=== PATIENT | female | born 2000 | race Caucasian/White ===

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

== ENCOUNTER 2020-04-17 10:59 | Inpatient (IN) ==
[2020-04-17] MEDS: RINGER'S SOLUTION,LACTATED 1,000 ML IV PRN ×2 (11:25→15:20)
[2020-04-17] MEDS ORDERED: ONDANSETRON HCL/PF 2 MG/ML VIAL IV PRN (11:28)
[2020-04-17] MEDS ORDERED: SIMETHICONE 80 MG TAB.CHEW PO PRN (11:28)
[2020-04-17] MEDS ORDERED: diphenhydrAMINE HCL 25 MG CAPSULE PO PRN (11:28)
[2020-04-17] MEDS ORDERED: HYDROcodone/ACETAMINOPHEN 1 EACH TABLET PO PRN (11:28)
[2020-04-17] MEDS ORDERED: KETOROLAC TROMETHAMINE 30 MG/ML VIAL IV PRN (11:28)
[2020-04-17] MEDS ORDERED: SENNOSIDES 8.6 MG TABLET PO PRN (11:28)
[2020-04-17] MEDS ORDERED: BISACODYL 10 MG SUPP.RECT RC PRN (11:28)
[2020-04-17] MEDS ORDERED: Oxytocin/Ringers Lactate 20 UNITS/1,000 ML BAG IV ONE (11:33)
[2020-04-17 11:58] LABS: Hematocrit 30.3 % (37.0-47.0); Hemoglobin 10.2 gm/dL (12.5-16.0); Mean Cell Volume 89.6 fl (78-100); Mean Corpuscular Hemoglobin 30.2 pg (27-31); Mean Corpuscular Hgb Conc 33.7 g/dl (32-36); Mean Platelet Volume 9.8 fl (8-12.5); Neutrophil # 6.1 K/mm3 (1.3-6.0); Neutrophil % 69.3 % (42-75.0); Platelet Count 228 K/mm3 (150-450); Red Blood Count 3.38 M/mm3 (4.2-5.4); Red Cell Distribution Width 13.2 % (11.5-14.0); White Blood Count 8.9 K/mm3 (4.0-10.5)
[2020-04-17 12:12] LABS: Random Urine Total Protein 15.4 mg/dL (0-12)
[2020-04-17 12:15] LABS: Albumin * 2.7 gm/dl (3.4-5.0); Anion Gap 14.5 mmol/L (6.8-13.8); Bilirubin, Total 0.2 mg/dL (0.0-1.1); Ca. Corrected For Albumin 9.6 mg/dL (8.4-10.2); Calcium * 8.9 mg/dL (7.9-10.9); Carbon Dioxide 21.2 mmol/L (24-32.6); Potassium 3.7 mmol/L (3.4-4.6); Total Protein 6.6 gm/dL (6.2-8.2)
[2020-04-17] MEDS ORDERED: ceFAZolin SODIUM 1 GM VIAL ONE (12:33)
--- NOTE | 2020-04-17 13:22 | ANES ---
Anesthesia Pre Procedure Eval Vitals/Labs: Last Vital Signs Temp 37.1 C 04/17/20 12:00 Pulse 95 04/17/20 12:00 Resp 18 04/17/20 12:00 BP 128/65 04/17/20 12:00 Pulse Ox 99 04/17/20 12:00 HOME MEDICATIONS famotidine 20 mg tablet 20 mg PO DAILY #30 tab 07/13/18 [Last Taken Unknown] Pnv No.122/Iron/Folic Acid [ Multi Tablet] 1 ea PO DAILY 03/08/20 [Last Taken Unknown] aspirin 81 mg tablet,delayed release 81 mg PO DAILY 03/28/20 [Last Taken Unknown] doxylamine 10 mg-pyridoxine (vit B6) 10 mg tablet,delayed release 1 tab PO TID PRN 03/28/20 [Last Taken Unknown] metoclopramide HCl 10 mg tablet 10 mg PO QID 03/28/20 [Last Taken Unknown] Ferrous Sulfate [Iron] 325 mg PO TID 04/17/20 [Last Taken Unknown] Allergies/Adverse Reactions: Allergies Allergy/AdvReac Type Severity Reaction Status Date / Time milk AdvReac nausea Verified 04/17/20 09:29 - Planned Procedure Planned Procedure: primary Medication List Reviewed:: Yes Allergies Verified: Yes Medical History (Last Reviewed 04/17/20 @ 13:20 by Dudley Restrepo CRNA) Ankle pain, left (Acute) Onset Date: ~09/09/18 Left ankle injury (Acute) Onset Date: ~09/09/18 Acid reflux Onset Date: Unknown Body mass index (BMI) greater than 95th percentile Onset Date: ~12/07/12 Conductive hearing loss Onset Date: Unknown History of ear infections Otitis media Onset Date: ~03/29/13 Perforation of tympanic membrane Onset Date: ~04/30/13 Tinnitus Onset Date: Unknown Tympanosclerosis involving tympanic membrane only Onset Date: Unknown Surgical History (Last Reviewed 04/17/20 @ 13:20 by Dudley Restrepo CRNA) History of placement of ear tubes Onset Date: Unknown 03/25, 12/27, 02/27 History of placement of ear tubes History of tympanoplasty Onset Date: ~07/2005 History of adenoidectomy Family History (Last Reviewed 04/17/20 @ 13:20 by Dudley Restrepo CRNA) Aunt Ovarian cyst Mother Acid reflux Father Alive and well Mother PCOS (polycystic ovarian syndrome) Hypertension Anemia Grandmother Cancer cervical - maternal Grandfather Cancer Paternal - lung cancer Grandmother Hypertension Other CVA (cerebral vascular accident) Migraine No pertinent family history - Family Anesthesia History Family History:: no untoward family reactions to anesthesia, no familial bleeding tendencies, no family history of clotting disorders, no family history of premature - Airway/Neck/Teeth Within Normal Limits:: Yes Teeth Condition: intact Neck Exam: full range of motion Mallampatti Score: 2 Thyromental (T-M) distance: > 6 cm Mandibulo Hyoid distance: > 3 cm - Respiratory Respiratory Physical: lungs clear Smoking Status: Never smoker Sleep Apnea currently treated: No Sleep Apnea by current assessment: No - Cardiovascular Tolerate Activity: Fair Heart Sounds: S1 & S2, Regular - Anesthesia Assessment and Plan ASA Class: PS, II Anesthesia Type Plan: Block - Bilateral TAP block for post op pain relief, Spinal
[2020-04-17] MEDS ORDERED: BUPIVACAINE HCL/EPINEPHRINE 50 ML VIAL IJ ONE (13:40)
--- NOTE | 2020-04-17 16:00 | PN ---
Progess Note - Interim Date: 04/17/20 Time: 15:59 Narrative: 04/17/20 15:59 See H&P in clinic EMR
--- NOTE | 2020-04-17 16:14 | OR ---
Operative Report - Dictated Report Narrative: Date of delivery: 04/17/2020 Time of delivery: 151 Gender: male weight: 2640 grams APGARS: 99 Preoperative diagnosis: IUP at 36w 3d, CHTN, oligohydramnios, delivery on maternal request Postoperative diagnosis: as above and foul-smelling amniotic fluid Procedure: Primary delivery Surgeon: Dr. Nowak Anesthesia: Spinal Anesthesiologist: Dudley Restrepo CRNA Description of the procedure: The patient was taken to the operating room where spinal anesthesia was induced. She was then prepped and draped in the lithotomy position in the standard surgical fashion. A Pfannestiel skin incision was made. The incision was carried through the subc utaneous tissue. The fascia was incised in the midline. The fascial incision was extended sharply. The fascia was from the underlying rectus muscles. The rectus muscles were in the midline. The peritoneum was entered bluntly. A large Buck retractor was placed in the abdomen. The uterus was incised in a low transverse fashion. The uterine incision was extended bluntly. The membranes were ruptured and minimal fluid was noted. The head was delivered without difficulty followed by the shoulders and the rest of the infant. The cord was clamped and cut and the infant was handed off to the attending pediatric staff. Cord blood was collected. The placenta was delivered by expression, intact, and without difficulty. The uterus was closed with 0-vicryl in two layers. The second layer was an imbricating layer. The uterine incision was inspected and appeared hemostatic. The Buck retractor was removed from the abdomen. The subfascial tissues were inspected for hemostasis as were the rectus muscles. The fascia was closed with 1-0 vicryl. The subcutaneous tissue's space was closed with 2-0 vicryl. The skin was closed with 3-0 monocryl on a Manfred needle. Blue Ball lam was placed over the incision. The incision was covered with a dressing. All sponge, lap, and needle counts were correct. The patient tolerated the procedure well. She was transferred to the recovery room in stable condition. EBL: 300 mL Complications: none Specimens: cord blood, placenta History for Definition: * The number of deliveries resulting in a live the patient experienced prior to current hospitalization * The previous delivery of live twins or any live multiple gestation is considered one live event. *If primagravida or nulliparous is documented select zero for the number of previous live births. Live Events: 0
--- NOTE | 2020-04-17 16:23 | ANES ---
Post Anesthesia Discharge - Transfer of Care Transfer of Care handoff given to nurse: Yes - Discharge from PACU Discharge from PACU when meets criteria: Yes - Comfortable - Anesthesia Post Op Note Anesthesia Post Op Note: Bilateral TAP block administered.
--- NOTE | 2020-04-17 17:00 | ANES ---
Post Anesthesia Assessment - Vital Signs Vitals: Last Vital Signs Temp 36.3 C 04/17/20 16:34 Pulse 84 04/17/20 16:45 Resp 18 04/17/20 16:45 BP 153/80 H 04/17/20 16:45 Pulse Ox 100 04/17/20 16:45 Airway Patency: Normal - Mental Status Level Of Consciousness: Awake, Alert, Appropriate - Pain Level Pain Score: 0 - N/V Assessment Nausea/Vomiting Presence: None Dehydration:: No
[2020-04-17] MEDS: HYDROcodone/ACETAMINOPHEN 1 EACH TABLET PO PRN (17:58)
[2020-04-17] MEDS: DOCUSATE SODIUM 100 MG CAPSULE PO SCH (22:18)
[2020-04-18] MEDS: HYDROcodone/ACETAMINOPHEN 1 EACH TABLET PO PRN ×3 (02:19→12:33)
[2020-04-18] MEDS ORDERED: ceFAZolin SODIUM 1 GM VIAL IV PRN (06:00)
--- NOTE | 2020-04-18 06:51 | PN ---
Subjective - Date and Time Seen Date: 04/18/20 Time: 06:49 Subjective Narrative: Patient without complaints Objective Objective Narrative: See vital signs - Review of Systems Generalized/Overall Review: Reports: No Symptoms Reported Misc: All systems neg except as marked - Vitals Vitals: Last Vital Signs Temp 37.0 C 04/18/20 02:10 Pulse 102 H 04/18/20 02:10 Resp 18 04/18/20 02:10 BP 135/75 04/18/20 02:10 Pulse Ox 98 04/18/20 02:10 - Abnormal Lab Findings Abnormal Lab Findings: Abnormal Lab Results 04/17/20 04/17/20 04/17/20 Range/Units 10:30 11:46 11:46 RBC 3.38 L (4.2-5.4) M/mm3 Hgb 10.2 L (12.5-16.0) gm/dL Hct 30.3 L (37.0-47.0) % Immature Gran % (Auto) 1.20 H (0.001-0.429) % Immature Gran # (Auto) 0.11 H (0.000-0.0310) K/mm3 Neutrophils # 6.1 H (1.3-6.0) K/mm3 Carbon Dioxide 21.2 L (24-32.6) mmol/L Anion Gap 14.5 H (6.8-13.8) mmol/L ALT 14 L (19-67) U/L Albumin 2.7 L (3.4-5.0) gm/dl U Random Total Protein 15.4 H (0-12) mg/dL U [place] Prot/Creat Ratio 237 H (0-199) mg/gm - Exam Constitutional: Present: Alert, Oriented x3, Cooperative ENT Exam: Present: hearing grossly normal Neck: Present: normal inspection Breasts: Present: Exam deferred Respiratory: Present: lungs clear, normal breath sounds, no respiratory distress Cardiovascular/Chest: Present: regular rate, rhythm Abdomen: Present: soft, nontender, nondistended - dressing c/d/i /Rectal: Present: Exam deferred Extremity: Present: non-tender, no calf tenderness Skin Exam: Present: normal color, warm/dry, no cyanosis Neurologic: Present: alert, normal mood/affect, oriented x 3 Appearance: Present: appropriate appearance, appropriate insight, neat, no memory impairment Eye contact: Present: cooperative, good eye contact, normal speech Thoughts: Present: normal thought pattern Cauti Physician Documentation - Urinary Catheter Management Urethral (Briones) Urethral Indwelling: No Date of Insertion: 04/17/20 Time of Insertion: 15:01 Assessment/Plan Plan Narrative: POD 1 s/p primary delivery Doing well Discharge today
[2020-04-18] MEDS: DOCUSATE SODIUM 100 MG CAPSULE PO SCH ×2 (06:55→09:03)
[2020-04-18] MEDS: IBUPROFEN 800 MG TABLET PO PRN ×2 (06:55→12:32)
--- NOTE | 2020-04-18 06:56 | DS ---
OB Discharge Summary (1) Oligohydramnios Status: Acute Qualifiers: Fetus number: single or unspecified fetus Trimester: third trimester Qualified Code(s): O41.03X0 - Oligohydramnios, third trimester, not applicable or unspecified (2) Status post delivery Status: Acute Delivery Date: 04/17/20 Delivery Time: 15:17 :: 1 Para:: 0 Gestational weeks:: 36 Gestational days:: 3 Intrapartum Procedures: Primary Section, Delivery-Low Transverse, Anesthesia - Spinal Procedures: None /OP Complications: No Complications Discharge Diagnosis: Term -Delivered, Other - chronic hypertension, oligohydramnios - Discharge Information Discharge Location: Home Disposition: Home self-care Referrals: Stephanie Mackenzie MD [Primary Care Provider] - Activity on Discharge:: Activity as tolerated, Pelvic Rest Discharge Diet: General/regular food Bad tableComplete Home Medications List: Complete Home Medication List: Pnv No.122/Iron/Folic Acid [ Multi Tablet] 1 ea PO DAILY 03/08/20 HYDROcodone/ACETAMINOPHEN [[place] 5-325] 1 ea PO Q6H PRN 5 Days #14 tab 04/17/20 - Plan Discharge to:: Home Comment:: Routine Discharge Instructions Follow up in office in:: 6 weeks - [place] Information Weight (Grams): 2,640 Sex: Male Score 1 min: 9 Score 5 min: 9 Complications: Other - transferred to [facility] for respiratory distress
[2020-04-18] MEDS ORDERED: HYDROcodone/ACETAMINOPHEN 1 EACH TABLET PO PRN (11:31)
[2020-04-18 14:36] VITALS: BP 131/71
== END 2020-04-18 15:17 | disposition home or self-care (01) | DRG 787 ==
LOC: OB 10:59
PROVIDERS: ADMIT Obstetrics & Gynecology; ATTEND Obstetrics & Gynecology
DX: Z3A.36 36 weeks gestation of pregnancy; O41.03X0 Oligohydramnios, third trimester, not applicable or unspecified; Z37.0 Single live birth; O10.02 Pre-existing essential hypertension complicating childbirth